=== PATIENT | female | born 1970 | race Caucasian/White ===

== ENCOUNTER 2019-06-12 16:20 | Emergency (ER) | payer BC ==
[~2019-06-12] VITALS: Ht 160 cm; Wt 93.0 kg
[~2019-06-12 16:20] MED LIST: ADVIL; ALLERGY MEDICATION; FISHOIL PO; FLEXERIL PO; VITAMIN B-12100 MC1 PO; VITAMIN D1000 UNI1 PO; WELLBUTRIN PO; ZANAFLEX4 M1 PO; ZOCOR 20 MG TAB20 M1 PO
[2019-06-12] MEDS ORDERED: MAXZIDE-25 MG1 EACH PO (16:29)
[2019-06-12] MEDS ORDERED: ZOLOFT 50 MG TA50 M1 PO (16:31)
[2019-06-12] MEDS ORDERED: PROGESTERONE100 MG PO (16:31)
[2019-06-12 19:02] VITALS: BP 156/78
== END 2019-06-12 18:50 | disposition home or self-care (01) ==
LOC: ER 16:20
DX: S01.112A Laceration without foreign body of left eyelid and periocular area, initial encounter (principal); I10 Essential (primary) hypertension; Z88.2 Allergy status to sulfonamides; Z88.8 Allergy status to other drugs, medicaments and biological substances; Z90.49 Acquired absence of other specified parts of digestive tract; W54.8XXA Other contact with dog, initial encounter; Y92.89 Other specified places as the place of occurrence of the external cause; Y93.89 Activity, other specified; Y99.8 Other external cause status